=== PATIENT | female | born 1970 | race Caucasian/White ===

== ENCOUNTER → 2018-01-28 08:29 | Outpatient (CLI) | payer OTHER, MEDICAID, SELFPAY ==
--- NOTE | 2018-01-28 | DI.CT.S_ITS ---
PROCEDURE: CT ABDOMEN PELVIS W CON INDICATIONS: RIGHT LOWER QUADRANT PAIN TECHNIQUE: After the administration of oral and intravenous contrast, 5 mm thick sections acquired from the diaphragms to the symphysis. 5 mm thick coronal and sagittal reformats were performed. For radiation dose reduction, the following was used: automated exposure control, adjustment of mA and/or kV according to patient size. COMPARISON: [facility], MR, PELVIS W&W/O CONTRAST, 02/09/2015, 15:45. FINDINGS: Image quality: Excellent. ABDOMEN: Lung bases: Lung bases are clear. Heart size is normal. Solid organs: There is hepatic steatosis. Gallbladder negative. Biliary system is non-dilated. Pancreas enhances normally. Spleen is normal in size and enhancement. No adrenal nodules. Kidneys are normal in size and enhancement, without hydronephrosis. Peritoneum and bowel: Stomach, small bowel, and colon loops are normal in caliber and wall thickness. No free fluid or air. The appendix appears normal. The rectum is partially collapsed otherwise unremarkable. Scattered colonic diverticula noted. No evidence of acute diverticulitis. There is moderate to large amount of retained stool. Nodes and vessels: No retroperitoneal or mesenteric adenopathy. Aorta and inferior vena cava are normal in caliber. Miscellaneous: No ventral hernias. PELVIS: Genitourinary: Bladder wall thickness is normal. Heterogeneous appearance of the uterine fundus potentially fibroids although technically nonspecific and further evaluation with ultrasound could be performed as clinically needed. Miscellaneous: No inguinal hernias (Valsalva maneuver performed) or adenopathy. Bones: No suspicious bony lesions. No vertebral body compression fractures. IMPRESSION: Normal appearance of the appendix. No ventral or inguinal hernia identified. Hepatic steatosis. No acute abnormality identified. Moderate to large amount of retained stool. Incidental colonic diverticulosis. Possible uterine fibroid/s although this could be further assessed with ultrasound as clinically warranted. Dictated by: Sukhdeep West M.D. on 01/28/2018 at 11:36 Approved by: Sukhdeep West M.D. on 01/28/2018 at 11:44
== END ==
PROVIDERS: Family Provider Family Medicine Geriatric Medicine; Visit Provider Surgery
DX: K76.0 Fatty (change of) liver, not elsewhere classified (principal); K57.90 Diverticulosis of intestine, part unspecified, without perforation or abscess without bleeding
CPT/HCPCS: 74177; Q9967

== ENCOUNTER → 2018-06-02 09:00 | Day surgery (SDC) | payer OTHER, MEDICAID, SELFPAY ==
[2018-05-26 08:11] VITALS: BMI 28.0
[2018-06-02] VITALS (10 sets, daily range): BP systolic 98–127; BP diastolic 55–88; PULSE 58–93; RESP 11–19; TEMP 36–36.6; O2SAT 93–116; BMI 27.8
--- NOTE | 2018-06-02 | PATH_ITS ---
[facility] Accession Number: [id number] . 01 Material submitted: . RIGHT OVARY . 02 Diagnosis: Right Ovary, Oophorectomy: Hemorrhagic corpus luteum cyst. Benign endosalpingiosis with calcifications. Negative for neoplasm. I/06/04/2018 . 02 Comment: As part of routine director supplier quality, Dr. Joy has also reviewed this case and agrees with the above interpretation. . . 02 Electronically signed: . Rohith Driscoll MD, PhD, Pathologist NPI- [id number] . 01 Gross description: . Received in formalin, labeled right ovary, is an ovary (2.9 x 2.0 x 1.3 cm) with bagley-yellow shiny bosselated serosa and bagley-white solid firm parenchyma with corpus albicans and corpus luteum identified. 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 ([id number]) /MRV . 02 Pathologist provided ICD-10: N83.11 . 02 CPT . 603442 Performed at: 01 [facility] [address] [facility], [place], [place] [id number] MD Florencio Sullivan MD Phone: [phone] Performed at: 02 [facility] [address] [place], [place] [id number] MD Cassius Levi MD Phone: [phone]
[2018-06-02] MEDS: LACTATED RINGERS 1,000 ML 100 ML IV (09:47)
--- NOTE | 2018-06-02 11:25 | PM.PREOP ---
Pre-operative Note Interval Note Pre-op Check: Yes History & Physical Reviewed by Physician and Yes Exam Performed Changes: No H&P completed within 30 days and has changed as indicated here:: See 05/28 out patient visit
--- NOTE | 2018-06-02 12:19 | SUR.OPER ---
Lithotomy on padded OR bed, head on pillow, arms secured on padded arm boards at <90 degrees abduction. Legs secured in padded yellow fins stirrups.
[2018-06-02] MEDS: BUPIVACAINE 0.5% W/ EPI (PF) VIAL 30 ML INJ (12:32)
[2018-06-02] MEDS: LACTATED RINGERS 1,000 ML 42 ML IV (12:33)
[2018-06-02] MEDS: KETOROLAC 30 MG/ML VIAL IV (13:03)
--- NOTE | 2018-06-02 13:08 | SUR.PHASEI ---
Report given to Bryan Munson RN.
--- NOTE | 2018-06-02 13:09 | SUR.PHASEI ---
care assumed, report recieved. sleeping at this time.
--- NOTE | 2018-06-02 13:14 | PM.OP.1 ---
Operative Date/Time/Diagnoses Date of procedure: 06/02/18 Time of procedure: 13:14 Pre-op diagnosis: Right lower quadrant pain status post laparoscopic supracervical hysterectomy Post-op diagnosis: same Procedure & Clinicians Procedure: Laparoscopy with right oophorectomy and lysis of adhesions. Treatment of possible endometriosis on the cervical stump Same procedure as scheduled: Yes Indications: Right lower quadrant pain of unclear etiology Surgeon: Ofe Villar Click Yes if Unassisted: Yes Anesthesia Type: General Operative Notes Findings: Mild adhesions in the right lower quadrant from the right adnexal to the anterior abdominal wall. Adhesions of the descending colon epiploica to the cervical cuff. Two spots of possible endometriosis on the cervical cuff. Closure Type: primary Specimen(s): other (Right ovary) Estimated Blood Loss (mL): 5 Blood products transfused: none Procedure in detail: Patient was brought to the operating room where she underwent general anesthesia. She was placed in low yellowfin stirrups and prepped and draped in usual sterile fashion. No antibiotics were indicated. Pulsatile stockings were in place and functional. Warming was with blankets. A review system was gone over with the staff in the room. A moistened sponge stick was placed in the vagina. A Clark was placed. The area of the incisions were injected with half percent Marcaine with epinephrine. An incision was made in the umbilicus with a scalpel. The incision was carried down to the fascial layer with blunt dissection and the fascia was incised transversely and held with 0 Vicryl suture x2. The perineum was entered bluntly any has sign can you was placed in the abdomen. The abdomen was insufflated with CO2. 2 5 mm trocar was placed under direct visualization in the right and left lower quadrant under direct visualization after incising the skin. There did not appear to be any damage with placement of the trocars. The right right ovary was grasped and removed with the PK generator. Adhesions were removed with scissors and the PK generator. The area of possible endometriosis was treated with the PK generator on the cervical cuff. Adequate hemostasis was noted. The CO2 was allowed to escape from the abdomen. The trochars were removed. Skin was closed with 4-0 Biosyn. The patient went to recovery room in good condition. Disposition: same day surgery Plan for aftercare: Patient has a postop appointment in 1 week
--- NOTE | 2018-06-02 13:40 | SUR.PHASEI ---
care transferred back to arrison report given.
[2018-06-02] MEDS: HYDROCODONE/ACET 5/325 TABLET 1 TAB PO (13:52)
== END | disposition home or self-care (01) ==
PROVIDERS: PCP Physician Assistant Medical; Visit Provider Specialist
PROC: (CPT 58661; principal; 2018-06-02 10:15)
DX: N83.11 Corpus luteum cyst of right ovary (principal); N94.89 Other specified conditions associated with female genital organs and menstrual cycle; K66.0 Peritoneal adhesions (postprocedural) (postinfection); R10.31 Right lower quadrant pain; R10.2 Pelvic and perineal pain; F41.9 Anxiety disorder, unspecified; K52.9 Noninfective gastroenteritis and colitis, unspecified; F17.200 Nicotine dependence, unspecified, uncomplicated
CPT/HCPCS: 58661; 88305; J0330; J1100; J1885; J2250; J2405; J2704; J2765; J3010

== ENCOUNTER → 2020-10-29 13:15 | Outpatient (CLI) | payer OTHER, MEDICAID, SELFPAY ==
[2020-10-29 14:35] LABS: COVID19 -Nasal RAPID Negative (Negative)
== END ==
PROVIDERS: PCP Physician Assistant Medical; Visit Provider Physical Medicine & Rehabilitation
DX: Z20.822 Contact with and (suspected) exposure to COVID-19 (principal)
CPT/HCPCS: 87635; C9803

== ENCOUNTER 2020-10-30 09:59 | Outpatient (CLI) | payer OTHER, MEDICAID, SELFPAY ==
[2020-10-30] VITALS (8 sets, daily range): BP systolic 118–145; BP diastolic 78–95; PULSE 75–93; RESP 12–19; TEMP 36.6; O2SAT 94–100
--- NOTE | 2020-10-30 10:01 | DI.RAD.S_ITS ---
PROCEDURE: PAIN L/S TRANSFORAMINAL INJECT INDICATIONS: SPONDYLOSIS COMPARISON: Outside Facility, RG, XR L-SPINE 2-3V, 07/13/2020, 16:05. FINDINGS: Fluoroscopic spot filming was performed to verify placement of a spinal needle at the L4-L5 level, as labeled on the films. Appropriate location of the needle tip was confirmed by injection of iodinated contrast. IMPRESSION: Intraprocedural examination within normal limits. Dictated by: Hieu Hawkins M.D. on 10/30/2020 at 10:11 Approved by: Hieu Hawkins M.D. on 10/30/2020 at 10:11
[2020-10-30] MEDS: fentaNYL 100 MCG/2 ML INJ 50 MCG IV (10:40)
[2020-10-30] MEDS: MIDAZOLAM 5 MG/5 ML VIAL IV (10:44)
[2020-10-30] MEDS: IOPAMIDOL 15 ML VIAL 3 ML INJ (10:45)
[2020-10-30] MEDS: BUPIVACAINE 0.25% (PF) VIAL 2 ML INJ (10:45)
[2020-10-30] MEDS: DEXAMETHASONE 10 MG/ML VIAL 20 MG INJ (10:45)
[2020-10-30] MEDS: BETAMETHASONE 30 MG/5 ML MDV 6 MG INJ (10:45)
--- NOTE | 2020-10-30 10:55 | P.PCN_ITS ---
Date/Time/Diagnoses Date of procedure: 10/30/20 Time of procedure: 10:55 Pre-procedure diagnosis: 1. FORAMINAL STENOSIS WITH LE SYMPTOMS Post-procedure diagnosis: same Procedure Notes Procedure: 1. FLUOROSCOPICALLY GUIDED CONTRAST CONTROLLED TRANSFORAMINAL EPIDURAL STEROID INJECTION - LEFT L4/5 Indications: Nancy is referred by LIDA Villela for treatment of Foraminal Stenosis with Left LE Symptoms Physician: Marco A Escalante Total Fluoroscopy time (seconds): 9 Total sedation minutes: 14 Complications: none Procedure in detail & Post-procedure care: FINDINGS Foraminal Nerve Root Compression secondary to disc disease and facet hypertrophy DESCRIPTION OF PROCEDURE Following review of allergy and review of potential side effects and complications, including, but not necessarily limited to, infection, allergic reaction, local tissue breakdown, stroke, temporary or permanent nerve injury, paralysis, and possible , the patient indicated that the patient understood and agreed to proceed. An informed consent document was signed by the patient, witnessed by a nurse, and placed in the patient's chart. Additionally, other treatment options including medications, modalities, and physical therapy were reviewed with the patient. After review of previous anaesthesic history and IV conscious sedation the patient was deemed safe to proceed with today?s procedure with IV conscious sedation as ASA class II designation. Safety time-out was performed to confirm patient ID, procedure to be performed and site of procedure. IV sedation was accomplished with a combination of 4mg of Versed and 50mcg of Fentanyl administered by the RN after DO order, titrated to patient comfort during the course of the procedure while the patient remained responsive to all verbal commands In the prone position following sterile prep and drape of the lumbar region, the left L4/5 posterior neuroforamen was identified fluoroscopically. The skin was anesthetized via a 25-gauge 1.5-inch needle with 1% lidocaine solution. At this point, a 25-gauge 3.5-inch spinal needle was atraumatically introduced and advanced under fluoroscopic guidance through the posterior left L4/5 neurofor amen to approximately the anterior aspect of the canal. Depth was confirmed on lateral view. Following negative aspiration, injection of approximately 1.5 cc of Isovue 200 under live fluoroscopy in the AP view confirmed excellent flow along the nerve root, into the epidural space without vascular or intrathecal uptake observed Radiological data, including multiple fluoroscopic views of the lumbosacral spine, reveal a spinal needle at the left L4/5 posterior neuroforamen. Subsequent views show flow of contrast material flowing superiorly and inferiorly along the nerve root confirming epidural flow. Subsequently, a test dose of 1.5 cc of 1% lidocaine solution was administered and patient was observed for two minutes for signs or symptoms of complications, including abdominal pain, shortness of breath, bilateral upper or lower extremity weakness, nausea and vomiting, prior to steroid injection. At this point, a total of 3cc or 20mg of dexamethasone and 6mg of betamethasone was i njected without incident. The procedure tolerated the procedure well without signs or symptoms of complications prior to transfer to the recovery area continued monitoring without incident. The patient was then transferred to the recovery area where they were observed for an appropriate time after the injection. The patient reported a VAS score of 7 prior to the procedure and a post-proced ure VAS of 2. POST OP INSTRUCTIONS The patient was provided a Pain Log to continue to record their response to the target-specific procedure prior to follow-up visit with their referring physician. Additionally, specific post-injection care instructions and a contact number to our office were provided if concerns arise regarding possible complications associated with the procedure are suspected.
== END 2020-10-30 11:19 | disposition home or self-care (01) ==
LOC: RAD 10:01
PROVIDERS: PCP Physician Assistant Medical; Referring Provider Physical Medicine & Rehabilitation; Visit Provider Physical Medicine & Rehabilitation
DX: M48.061 Spinal stenosis, lumbar region without neurogenic claudication (principal); M51.16 Intervertebral disc disorders with radiculopathy, lumbar region
CPT/HCPCS: 64483; 99152; J0702; J1100; J2250; J3010

== ENCOUNTER → 2020-12-12 09:52 | Outpatient (CLI) | payer OTHER, MEDICAID, SELFPAY ==
--- NOTE | 2020-12-12 09:54 | DI.RAD.S_ITS ---
PROCEDURE: XR SACRUM COCCYX MIN 2V INDICATIONS: coccydynia TECHNIQUE: 3 views of the sacrum and coccyx acquired. COMPARISON: None. FINDINGS: Bones: No fractures or dislocations. No suspicious bony lesions. Soft tissues: Visualized bowel gas pattern is normal. No suspicious soft tissue densities. IMPRESSION: No trauma found. If added evaluation is necessary MR scanning without and with contrast would be the appropriate next step. Dictated by: Diomedes Prieto M.D. on 12/12/2020 at 10:29 Approved by: Diomedes Prieto M.D. on 12/12/2020 at 10:30
== END ==
PROVIDERS: PCP Physician Assistant Medical; Referring Provider Physical Medicine & Rehabilitation; Visit Provider Physical Medicine & Rehabilitation
DX: M53.3 Sacrococcygeal disorders, not elsewhere classified (principal); M51.26 Other intervertebral disc displacement, lumbar region; M47.816 Spondylosis without myelopathy or radiculopathy, lumbar region
CPT/HCPCS: 72220; 99215

== ENCOUNTER 2021-01-24 10:06 | Outpatient (CLI) | payer OTHER, MEDICAID, SELFPAY ==
[2021-01-24] VITALS (8 sets, daily range): BP systolic 117–143; BP diastolic 63–88; PULSE 63–77; RESP 10–18; TEMP 36.3; O2SAT 96–100
--- NOTE | 2021-01-24 10:07 | DI.RAD.S_ITS ---
PROCEDURE: PAIN SI JOINT INJECTION INDICATIONS: coccyx injection COMPARISON: X-ray sacrum coccyx two-view, 12/12/2020. FINDINGS: Fluoroscopic spot filming was performed to verify placement of spinal needles at the sacrum level(s), as labeled on the films. Appropriate location(s) of the needle tip(s) was confirmed by injection of iodinated contrast. IMPRESSION: Fluoroscopy for pain management. Dictated by: Harrison Cloud M.D. on 01/24/2021 at 11:38 Approved by: Harrison Cloud M.D. on 01/24/2021 at 11:38
[2021-01-24] MEDS: MIDAZOLAM 5 MG/5 ML VIAL IV (10:57)
[2021-01-24] MEDS: fentaNYL 100 MCG/2 ML INJ 50 MCG IV (10:57)
[2021-01-24] MEDS: BETAMETHASONE 30 MG/5 ML MDV 12 MG INJ (10:58)
[2021-01-24] MEDS: IOPAMIDOL 15 ML VIAL 3 ML INJ (10:58)
[2021-01-24] MEDS: BUPIVACAINE 0.5% (PF) VIAL 2 ML INJ (10:58)
--- NOTE | 2021-01-24 11:07 | P.PCN_ITS ---
Date/Time/Diagnoses Date of procedure: 01/24/21 Time of procedure: 11:07 Pre-procedure diagnosis: Coccyx Pain/DJD Post-procedure diagnosis: same Procedure Notes Procedure: Fluoroscopically guided contrast controlled Coccyx injection Indications: Nancy is referred by LIDA Villela for treatment of Coccyx DJD Physician: Marco A Escalante Total Fluoroscopy time (seconds): 7 Total sedation minutes: 10 Complications: none Procedure in detail & Post-procedure care: DESCRIPTION OF PROCEDURE Fluoroscopic guided, contrast controlled Cooccyx injection Following review of allergies and review of potential side effects and complications, including, but not necessarily limited to, infection, allergic reaction, local tissue breakdown, temporary as well as permanent nerve injury, paralysis, stroke and possible , the patient indicated that they understood and agreed to proceed. An informed consent was signed by the patient, witnessed by a nurse, and placed in the patient's chart. Additionally, other treatment options including modalities, medications, and physical therapy were reviewed with the patient. After review of previous anaesthesic history and IV conscious sedation the patient was deemed safe to proceed with today?s procedure with IV conscious sedation as ASA class II designation. Safety time-out was performed to confirm patient ID, procedure to be performed and site of procedure. IV sedation was accomplished with a combination of 5mg of Versed and 100mcg of Fentanyl administered by the RN after DO order, titrated to patient comfort during the course of the procedure while the patient remained responsive to all verbal commands. In the prone position following sterile prep and drape of the pelvic region, the hyper lucency on in the inferior aspect of the coccyx was identified flu oroscopically the skin was anesthetized be a 25 gauge 1 eventual with approximately 2cc of 1% lidocaine solution. At this point, a 22 gauge 3inch spinal needle was atraumatically introduced and advanced under fluoroscopic guidance into the inferior aspect of the coccyx joint. Following negative aspiration, approximately 0.2cc of Isovue-300 was injected confirming intra- articular placement without vascular uptake. Radiographic data, including multiple fluoroscopic views of the pelvis, reveals a spinal needle in the left sacroiliac joint hyper lucent zone. Subsequent view show flow contrast tear superiorly and inferiorly within the joint capsule without vascular intrathecal uptake. At this point a total of 1cc or 0.5% Marcaine was combined with 1cc of 6mg of betamethasone was injected without incident. The patient tolerated the procedure well without signs or symptoms of complications prior to transfer to the recovery area for further monitoring. The patient was then transferred to the recovery area with a bur observed for an appropriate time after the injection. The patient reverted a vas score of 7 prior to the procedure and postprocedure vas of 1. POSTOP INSTRUCTIONS The patient was provided with a pain like to continue to record the patient's response to the target specific procedure prior to the patient's follow-up visit with the referring physician. Additionally, specific post injection care instructions and a contact number to our office were provided if concerns arise regarding the possible complications associated with procedure are suspected.
== END 2021-01-24 11:35 | disposition home or self-care (01) ==
LOC: RAD 10:07
PROVIDERS: PCP Physician Assistant Medical; Referring Provider Physical Medicine & Rehabilitation; Visit Provider Physical Medicine & Rehabilitation
DX: M53.3 Sacrococcygeal disorders, not elsewhere classified (principal); M47.818 Spondylosis without myelopathy or radiculopathy, sacral and sacrococcygeal region
CPT/HCPCS: 27096; 99152; J0702; J2250; J3010

== ENCOUNTER → 2021-10-09 11:26 | Outpatient (CLI) | payer OTHER, MEDICAID, SELFPAY ==
[2021-10-09 13:50] LABS: COVID19 -Nasal RAPID Negative (Negative)
== END ==
PROVIDERS: PCP Physician Assistant Medical; Visit Provider Physical Medicine & Rehabilitation
DX: Z20.822 Contact with and (suspected) exposure to COVID-19 (principal)
CPT/HCPCS: 87635

== ENCOUNTER 2021-10-10 08:05 | Outpatient (CLI) | payer OTHER, MEDICAID, SELFPAY ==
[2021-10-10] VITALS (8 sets, daily range): BP systolic 125–150; BP diastolic 74–95; PULSE 63–69; RESP 12–24; TEMP 36.8; O2SAT 94–100
--- NOTE | 2021-10-10 08:08 | DI.RAD.S_ITS ---
PROCEDURE: PAIN L/S FACET INJ/BLK 1ST ANITHA COMPARISON: [facility], , PAIN L/S TRANSFORAMINAL INJECT, 10/30/2020, 10:43. INDICATIONS: SPONDYLOSIS FINDINGS: Fluoroscopic spot filming was performed to verify placement of spinal needles on both sides at the L4-L5 and L5-S1 levels, as labeled on the films. Appropriate location of the needle tips was confirmed by injection of iodinated contrast. IMPRESSION: Intraprocedural examination within normal limits. Dictated by: Hieu Hawkins M.D. on 10/10/2021 at 9:27 Approved by: Hieu Hawkins M.D. on 10/10/2021 at 9:27
--- NOTE | 2021-10-10 09:08 | P.PCN_ITS ---
Date/Time/Diagnoses Date of procedure: 10/10/21 Time of procedure: 09:41 Pre-procedure diagnosis: 1. FACET ARTHROPATHY 2. AXIAL LBP 3. MULTILEVEL DDD This procedure is found to meet the Governor's proclamation 20-24.2 regarding non urgent procedures. This patient meets multiple criteria for the procedure including continuing or worsening of significant or severe pain, combined with further deterioration of the patient's condition or overall health as well as delay in treatment would be expected to result in less positive ultimate medical outcome. Therefore the decision to perform the procedure in an outpatient hospital setting is found to be in accordance with guidelines of the procla mation. Post-procedure diagnosis: same Procedure Notes Procedure: 1. FLUOROSCOPICALLY GUIDED CONTRAST CONTROLLED FACET JOINT INJECTIONS BILATERAL L4/5, L5/S1 Indications: Nancy is referred by Dr. Wdae for treatment of Axial LBP Physician: Marco A Escalante Total Fluoroscopy time (seconds): 14 Total sedation minutes: 12 Complications: none Procedure in detail & Post-procedure care: FINDINGS Multilevel Facet Arthropathy with Clinically significant axial LBP DESCRIPTION OF PROCEDURE Fluoroscopically guided, contrast-controlled bilateral L4/5, L5/S1 facet joint injections. Following review of allergy and review of potential side effects and complications, including, but not necessarily limited to, infection, allergic reaction, local tissue breakdown, stroke, temporary or permanent nerve injury, paralysis, and possible , the patient indicated that the patient understood and agreed to proceed. An informed consent document was signed by the patient, witnessed by a nurse, and placed in the patient's chart. Additionally, other treatment options including medications, modalities, and physical therapy were reviewed with the patient. After review of previous anaesthesic history and IV conscious sedation the patient was deemed safe to proceed with today?s procedure with IV conscious sedation as ASA class II designation. Safety time-out was performed to confirm patient ID, procedure to be performed and site of procedure. IV sedation was accomplished with a combination of 3mg of Versed and 50mcg of Fentanyl was administered by the RN after DO order, titrated to patient comfort during the course of the procedure while the patient remained responsive to all verbal commands In the prone position, following sterile prep and drape of the lumbar region, the posterior aspect of the L4/5, L5/S1 facet joints were identified fluoroscopically. The skin was anesthetized via a 25-gauge 1.5inch needle with 1% lidocaine solution into the corresponding facet joints. At this point, a 22- gauge 3.5-inch spinal needle was atraumatically introduced and advanced under fluoroscopic guidance into the corresponding facet joints. Following negative aspiration, injections of approximately 0.2cc of Isovue 200 confirmed interarticular placement without vascular uptake. The identical procedure was then performed at the L4/5, L5/S1 facet joints on the left. Radiological data, including multiple fluoroscopic views of the lumbosacral spine, reveal a spinal needle at the L4/5, L5/S1 facet joints bilaterally. Subsequent views show flow of contrast material both superiorly and inferiorly within the joint space without vascular or intrathecal uptake. At this point, a total of 0.5cc including a mixture of 0.25cc Marcaine and 0.25cc betamethasone was injected without complication into each of the corresponding facet joints. The patient tolerated the procedure well without signs or symptoms of complications prior to transfer to the recovery area continued monitoring without incident. The patient was then transferred to the recovery area where they were observed for an appropriate period of time after the injection. The patient reported a VAS score of 7 prior to the procedure and a post- procedure VAS of 0. POST OP INSTRUCTIONS The patient was provided a Pain Log to continue to record their response to the target-specific procedure prior to follow-up visit with their referring physician. Additionally, specific post-injection care instructions and a contact number to our office were provided if concerns arise regarding possible complications associated with the procedure are suspected.
[2021-10-10] MEDS: MIDAZOLAM 5 MG/5 ML VIAL IV (09:23)
[2021-10-10] MEDS: fentaNYL 100 MCG/2 ML INJ 50 MCG IV (09:23)
[2021-10-10] MEDS: BUPIVACAINE 0.5% (PF) VIAL 5 ML INJ (09:27)
[2021-10-10] MEDS: BETAMETHASONE 30 MG/5 ML MDV 12 MG INJ (09:27)
[2021-10-10] MEDS: IOPAMIDOL 15 ML VIAL 3 ML INJ (09:27)
[2021-10-10] MEDS: LIDOCAINE 1% (PF) 5 ML 10 ML INJ (09:29)
== END 2021-10-10 10:05 | disposition home or self-care (01) ==
LOC: RAD 08:07
PROVIDERS: PCP Family Medicine; Referring Provider Physical Medicine & Rehabilitation; Visit Provider Physical Medicine & Rehabilitation
DX: M47.816 Spondylosis without myelopathy or radiculopathy, lumbar region (principal); M47.817 Spondylosis without myelopathy or radiculopathy, lumbosacral region; M51.36 Other intervertebral disc degeneration, lumbar region; M51.37 Other intervertebral disc degeneration, lumbosacral region
CPT/HCPCS: 64493; 64494; 99152; J0702; J2250; J3010

== ENCOUNTER → 2021-10-30 12:26 | Outpatient (CLI) | payer OTHER, MEDICAID, SELFPAY ==
--- NOTE | 2021-10-30 12:27 | DI.RAD.S_ITS ---
PROCEDURE: XR LUMBAR SPINE MIN 4V INDICATIONS: BACK PAIN TECHNIQUE: 4 views of the lumbar spine were acquired, including bilateral oblique views. COMPARISON: None. FINDINGS: Bones: 5 nonrib-bearing vertebrae are present. There is minimal retrolisthesis of L2 on L3 and L3 on L4. Degenerative endplate changes and loss of disc height at L4-5 and L5-S1 levels are seen. No vertebral body compression fractures. No suspicious bony lesions. Soft tissues: Overlying bowel gas pattern is normal. No suspicious soft tissue calcifications. Oblique images: No pars defects. Suggestion of right-sided bony foraminal stenosis at L4-5 level is seen. IMPRESSION: 1. Minimal retrolisthesis at L2-3 and L3-4 levels. No acute compression fracture. 2. Degenerative disc disease in lower lumbar spine. No gross pars defects. Suggestion of right-sided bony foraminal stenosis at L4-5 level. Dictated by: Maykel Lr M.D. on 10/30/2021 at 12:53 Approved by: Maykel Lr M.D. on 10/30/2021 at 12:54
== END ==
PROVIDERS: PCP Family Medicine; Referring Provider Physical Medicine & Rehabilitation; Visit Provider Physical Medicine & Rehabilitation
DX: M51.36 Other intervertebral disc degeneration, lumbar region (principal); M51.26 Other intervertebral disc displacement, lumbar region; M47.816 Spondylosis without myelopathy or radiculopathy, lumbar region
CPT/HCPCS: 72110

== ENCOUNTER → 2021-11-08 07:28 | Outpatient (CLI) | payer OTHER, MEDICAID, SELFPAY ==
--- NOTE | 2021-11-08 07:29 | DI.MRI.S_ITS ---
PROCEDURE: MR LUMBAR SPINE WO CON INDICATIONS: Right L4 radiculopathy TECHNIQUE: Noncontrast sagittal T1 spin echo and T2 fast echo, sagittal STIR, axial T1 and T2 fast spin echo through the lumbar spine. In cases with scoliosis, additional coronal T2 fast spin echo may be performed. COMPARISON: [facility], CR, XR LUMBAR SPINE MIN 4V, 10/30/2021, 12:18. FINDINGS: Image quality: Excellent. Alignment and Curvature: There is normal bony alignment. Bone Marrow: Marrow is of normal overall signal. No acute vertebral body compression fractures. Spinal Cord: Conus medullaris terminates at the L1-L2 disc level. Visualized cord demonstrates normal signal and size. Paraspinous Soft Tissues: No paravertebral masses. T12-L1: Normal appearance. L1-L2: Slight loss of disc signal. Minimal, diffuse disc bulge. No central stenosis. No neural foraminal narrowing. No neural compression. L2-L3: Loss of disc signal. Minimal, diffuse disc bulge. No central stenosis. No neural foraminal narrowing. No neural compression. Fissures noted in the posterior and left foraminal annulus. L3-L4: Slight loss of disc signal. Mild, diffuse disc bulge. Mild bilateral facet hypertrophy. No central stenosis. Mild bilateral neural foraminal narrowing. No neural compression. L4-L5: Loss of disc signal and height. Mild, diffuse disc bulge. Mild bilateral facet hypertrophy. Mild narrowing of the central canal. Moderate to severe right and moderate left neural foraminal narrowing with slight compression of the exiting left L4 nerve root. No neural compression. Fissures noted in the posterior annulus. L5-S1: Loss of disc signal. Mild, diffuse disc bulge. Mild left and moderate right facet hypertrophy. Mild narrowing of the central canal. Moderate to severe right and mild left neural foraminal narrowing with slight compression of the exiting right L5 nerve root. Fissures noted in the posterior annulus. IMPRESSION: 1. Multilevel degenerative disc disease. 2. Multilevel facet arthropathy. 3. No severe central canal narrowing. 4. Moderate to severe right L4-L5 and L5-S1 neural foraminal narrowing with slight compression of the exiting right L4 and L5 nerve roots. 5. L2-L3, L4-L5 and L5-S1 disc annulus fissures. Dictated by: Lorrie Cheung MD, PhD on 11/08/2021 at 9:15 Approved by: Lorrie Cheung MD, PhD on 11/08/2021 at 9:19
== END ==
PROVIDERS: PCP Family Medicine; Referring Provider Physical Medicine & Rehabilitation; Visit Provider Physical Medicine & Rehabilitation
DX: M51.16 Intervertebral disc disorders with radiculopathy, lumbar region (principal); M51.17 Intervertebral disc disorders with radiculopathy, lumbosacral region; M47.26 Other spondylosis with radiculopathy, lumbar region; M47.27 Other spondylosis with radiculopathy, lumbosacral region; M48.061 Spinal stenosis, lumbar region without neurogenic claudication; M48.07 Spinal stenosis, lumbosacral region
CPT/HCPCS: 72148